=== PATIENT | male | born 1985 | race Two or more races ===

== ENCOUNTER 2020-01-13 09:59 | Day surgery (SDC) | payer OTHER ==
[~2020-01-13] VITALS: Ht 180.3 cm; Wt 103.5 kg
[2020-01-13] VITALS (9 sets, daily range): BP systolic 115–141; BP diastolic 44–86
[~2020-01-13 09:59] MED LIST: UNABLE TO OBTAIN; famotidine 20mg tablet PO ONE; ringers solution, lacted 1,000 ML IV SCH
[2020-01-13] MEDS ORDERED: cefazolin/dext.iso 2gm/50ml 50 ML IV ONE (10:50)
[2020-01-13 11:29] LABS: BASOPHILS % (AUTO) 0.6 % (0-1); EOSINOPHILS # (AUTO) 0.4 X10'3 (0-0.9); EOSINOPHILS % (AUTO) 8.3 % (0-6); HEMATOCRIT 42.6 % (42.0-52.0); HEMOGLOBIN 14.4 g/dl (14.0-17.9); LYMPHOCYTES # (AUTO) 1.9 X10'3 (1.1-4.8); LYMPHOCYTES % (AUTO) 37.8 % (21-51); MEAN CORPUSCULAR HEMOGLOBIN 30.1 PG (27.0-31.0); MEAN CORPUSCULAR HGB CONC 33.7 g/dL (33.0-36.5); MEAN CORPUSCULAR VOLUME 89.3 FL (78-98); MEAN PLATELET VOLUME 7.5 FL (7.4-10.4); MONOCYTES # (AUTO) 0.4 X10'3 (0-0.9); MONOCYTES % (AUTO) 7.9 % (2-12); NEUTROPHILS # (AUTO) 2.2 X10'3 (1.8-7.7); NEUTROPHILS % (AUTO) 45.4 % (42-75); PLATELET COUNT 196 X10'3 (140-440); RED BLOOD COUNT 4.77 X10'6 (4.70-6.10); RED CELL DISTRIBUTION WIDTH 13.3 % (11.5-14.5); WHITE BLOOD COUNT 4.9 X10'3 (4.5-11.0)
[2020-01-13 11:43] LABS: ALANINE AMINOTRANSFERASE 301 U/L (12-78); ALBUMIN 3.9 G/DL (3.4-5.0); ALBUMIN/GLOBULIN RATIO 0.9 (1.1-1.5); ALKALINE PHOSPHATASE 77 IU/L (46-116); ANION GAP 7 (8-16); ASPARTATE AMINO TRANSFERASE 82 U/L (10-37); BLOOD UREA NITROGEN 9 MG/DL (7-18); BUN/CREATININE RATIO 9.6 (5.4-32.0); CALCIUM 8.7 MG/DL (8.5-10.1); CHLORIDE 104 MMOL/L (99-107); CREATININE 0.94 MG/DL (0.60-1.10); GLUCOSE 97 MG/DL (70-104); SODIUM 139 MMOL/L (135-145); TOTAL CARBON DIOXIDE 28.2 MMOL/L (24-32); TOTAL PROTEIN 8.2 G/DL (6.4-8.2); eGFR > 90 ML/MIN
[2020-01-13] MEDS ORDERED: ROPIVAcaine 0.5% (5mg/ml) 30ml vial ONE ×2 (11:58→13:17)
[2020-01-13] MEDS ORDERED: ceFAZolin 1000mg inj ONE (11:58)
[2020-01-13] MEDS ORDERED: midazolam 2 mg/2 ml injection ONE (13:01)
[2020-01-13] MEDS ORDERED: fentaNYL /PF 50mcg/ml 5ml ampule ONE (13:02)
[2020-01-13] MEDS ORDERED: dexamethasone sod phosphate 4mg/ml inj. ONE (13:17)
[2020-01-13] MEDS ORDERED: LIDOcaine 2% (20mg/ml) 5ml vial ONE (13:17)
[2020-01-13] MEDS ORDERED: ondansetron/PF 4mg/2ml inj ONE (13:17)
[2020-01-13] MEDS ORDERED: propofol inj 20 ML IV ONE (13:17)
[2020-01-13] MEDS ORDERED: sevoflurane 250ml liquid IH ONE (13:56)
[2020-01-13] MEDS ORDERED: ringers solution, lacted 1,000 ML IV SCH (14:25)
[2020-01-13] MEDS ORDERED: ondansetron/PF 4mg/2ml inj IV PRN (14:25)
[2020-01-13] MEDS ORDERED: meperidine/PF 25mg/ml syringe IV PRN ×2 (14:25)
[2020-01-13] MEDS ORDERED: ROPIVAcaine 0.2%/PF PUMP/bolus 550 ML ADDCANAL SCH (14:25)
[2020-01-13] MEDS ORDERED: proCHLORperazine 10 MG/2 ml inj IV PRN (14:25)
[2020-01-13] MEDS ORDERED: morphine 4 MG/ML inj SYRINge IV PRN (14:25)
[2020-01-13] MEDS ORDERED: morphine 2 MG/ML inj. syringe IV PRN (14:25)
[2020-01-13] MEDS ORDERED: ROPIVAcaine 0.2% (10 MG/5 ML) BOLUS INJECTION ADDCANAL PRN (14:25)
[2020-01-13] MEDS: meperidine/PF 25mg/ml syringe IV PRN ×2 (14:56→15:17)
== END 2020-01-13 16:05 | disposition home or self-care (01) ==
LOC: PRE-OP 09:59 → EEVIPCON 11:45 → PAS 16:05
PROVIDERS: ATTEND Orthopaedic Surgery
DX: S83.281A Other tear of lateral meniscus, current injury, right knee, initial encounter (principal); T85.698A Other mechanical complication of other specified internal prosthetic devices, implants and grafts, initial encounter; Z86.19 Personal history of other infectious and parasitic diseases; Z79.899 Other long term (current) drug therapy; G89.18 Other acute postprocedural pain; Y83.8 Other surgical procedures as the cause of abnormal reaction of the patient, or of later complication, without mention of misadventure at the time of the procedure; Y92.89 Other specified places as the place of occurrence of the external cause
CPT/HCPCS: 29881; 29888; 36415; 64447; 76942; 80053; 82948; 85025; C1713; C1776; J0690; J1100; J2001; J2175; J2250; J2270; J2405; J2704; J2795; J3010; L1832; A4215; A4618; A6449; A7000; J7120